=== PATIENT | female | born 1975 | race Caucasian/White ===

== ENCOUNTER → 2017-02-22 | Outpatient (REF) | payer OTHER | LOC: M LAB REF 16:24 | PROVIDERS: ATTEND Physician Assistant Medical | DX: J02.9 Acute pharyngitis, unspecified (principal) ==

== ENCOUNTER → 2017-05-30 | Outpatient (REF) | payer OTHER | LOC: M LAB REF 16:29 | PROVIDERS: ATTEND Nurse Practitioner Family | DX: K13.0 Diseases of lips (principal); D48.5 Neoplasm of uncertain behavior of skin ==

== ENCOUNTER → 2019-12-17 | Outpatient (REF) | payer OTHER ==
[~2019-12-17] MED LIST: ONDA4TAB6 PO; PRED20TA PO
[2019-12-22 00:07] LABS: HSV-1 DNA Negative (Negative); HSV-2 DNA Negative (Negative)
== END ==
LOC: M LAB REF 22:14
PROVIDERS: ATTEND Physician Assistant
DX: B00.1 Herpesviral vesicular dermatitis (principal)

== ENCOUNTER → 2020-01-05 | Outpatient (REF) | payer OTHER | LOC: M LAB REF 12:19 | PROVIDERS: ATTEND Registered Nurse | DX: R20.2 Paresthesia of skin (principal) ==

== ENCOUNTER → 2020-12-27 | Outpatient (CLI) | payer OTHER | LOC: M PLALAB 13:08 | PROVIDERS: ATTEND Allergy & Immunology Allergy | DX: T78.1XXD Other adverse food reactions, not elsewhere classified, subsequent encounter (principal) ==

== ENCOUNTER → 2022-06-29 | Outpatient (REF) | payer OTHER ==
[2022-06-29 20:22] LABS: APPEARANCE, URINE MANUAL CLEAR (CLEAR); COLOR, URINE MANUAL YELLOW (YELLOW)
[2022-06-29 20:23] LABS: BILIRUBIN, URINE MANUAL NEGATIVE (NEGATIVE); BLOOD URINE MANUAL NEGATIVE (NEGATIVE); GLUCOSE, URINE (UA) MANUAL NEGATIVE (NEGATIVE); KETONE, URINE MANUAL NEGATIVE (NEGATIVE); LEUKOCYTE ESTERASE, URINE MAN POSITIVE (NEGATIVE); NITRITE, URINE MANUAL NEGATIVE (NEGATIVE); PROTEIN, URINE MANUAL 1+ mg/dL (NEGATIVE); SPECIFIC GRAVITY,URINE MANUAL 1.015 (1.002-1.035); UROBILINOGEN, URINE MANUAL NORMAL (NORMAL)
[2022-06-29 20:27] LABS: BACTERIA, URINE NONE SEEN; HYALINE CAST, URINE NONE SEEN /lpf (0-1); RBC, URINE NONE SEEN /hpf (0-3); SQUAMOUS EPITHELIAL CELL URINE NONE SEEN /hpf (SMALL AMT); WBC, URINE NONE SEEN /hpf (0-3)
== END ==
LOC: M LAB REF 20:09
PROVIDERS: ATTEND Physician Assistant Medical
DX: N39.0 Urinary tract infection, site not specified (principal)

== ENCOUNTER → 2022-07-01 | Outpatient (REF) | payer OTHER ==
[2022-07-01 20:35] LABS: APPEARANCE, URINE MANUAL CLEAR (CLEAR); COLOR, URINE MANUAL ORANGE (YELLOW); PH,URINE MAN OBSCURED UNITS (5.0 - 7.0); PROTEIN, URINE MANUAL OBSCURED mg/dL (NEGATIVE)
[2022-07-01 20:36] LABS: BILIRUBIN, URINE MANUAL OBSCURED (NEGATIVE); BLOOD URINE MANUAL NEGATIVE (NEGATIVE); GLUCOSE, URINE (UA) MANUAL NEGATIVE (NEGATIVE); KETONE, URINE MANUAL OBSCURED mg/dL (NEGATIVE); LEUKOCYTE ESTERASE, URINE MAN OBSCURED (NEGATIVE); NITRITE, URINE MANUAL OBSCURED (NEGATIVE); UROBILINOGEN, URINE MANUAL OBSCURED mg/dl (NORMAL)
[2022-07-01 20:50] LABS: RBC, URINE NONE SEEN /hpf (0-3); SQUAMOUS EPITHELIAL CELL URINE SMALL AMOUNT /hpf (SMALL AMT)
[2022-07-01 20:51] LABS: AMORPHOUS SEDIMENT, URINE SMALL AMOUNT (NEGATIVE); BACTERIA, URINE SMALL AMOUNT; HYALINE CAST, URINE NONE SEEN /lpf (0-1)
== END ==
LOC: M LAB REF 18:01
PROVIDERS: ATTEND Physician Assistant Medical
DX: N39.0 Urinary tract infection, site not specified (principal)

== ENCOUNTER → 2022-07-04 | Outpatient (REF) | payer OTHER ==
[2022-07-04 13:31] LABS: BASO % 0.5 % (0.0-1.0); EOS % 0.8 % (0.0-3.0); HEMATOCRIT 41.6 % (36.0-47.0); HEMOGLOBIN 13.6 g/dl (12.0-15.5); LYMPH # 0.9 10^3/uL (1.5-5.0); LYMPH % 23.4 % (24.0-44.0); MEAN CORPUSCULAR HEMOGLOBIN 29.5 pg (27.0-33.0); MEAN CORPUSCULAR HGB CONC 32.7 g/dl (32.0-36.5); MEAN CORPUSCULAR VOLUME 90.2 fl (80.0-96.0); MONO # 0.4 10^3/uL (0.0-0.8); NEUTROPHILS # 2.6 10^3/uL (1.5-8.5); PLATELET COUNT, AUTOMATED 208 10^3/uL (150-450); RED BLOOD COUNT 4.61 10^6/uL (4.00-5.40); WHITE BLOOD COUNT 3.9 10^3/uL (4.0-10.0)
[2022-07-05 20:08] LABS: HSV IgM TYPES 1&2 <0.91 Ratio (0.00-0.90); HSV TYPE I IgG SPECIFIC 1.02 index (0.00-0.90); HSV TYPE II IgG SPECIFIC <0.91 index (0.00-0.90)
== END ==
LOC: M LAB REF 12:03
PROVIDERS: ATTEND Obstetrics & Gynecology
DX: A60.04 Herpesviral vulvovaginitis (principal)

== ENCOUNTER → 2023-01-07 | Outpatient (CLI) | payer OTHER ==
[2023-01-07 18:13] LABS: CORTISOL PM 5.7 UG/DL (3.1-16.7); ESTRADIOL 43.9 PG/ML; FOLLICLE STIMULATING HORMONE 67.7 mIU/ML; LUTEINIZING HORMONE 50.7 mIU/ML; PROGESTERONE 0.24 NG/ML
== END ==
LOC: M WUC 14:43
PROVIDERS: ATTEND Obstetrics & Gynecology
DX: N95.1 Menopausal and female climacteric states (principal)

== ENCOUNTER → 2023-01-23 | Outpatient (CLI) | payer OTHER | LOC: M WHC 07:45 | PROVIDERS: ATTEND Obstetrics & Gynecology | DX: N95.1 Menopausal and female climacteric states (principal) ==

== ENCOUNTER → 2023-03-12 | Outpatient (CLI) | payer OTHER ==
[2023-03-12 19:39] LABS: FOLLICLE STIMULATING HORMONE 44.1 mIU/ML; LUTEINIZING HORMONE 28.1 mIU/ML; PROGESTERONE 0.27 NG/ML
[2023-03-12 19:40] LABS: ESTRADIOL 70.3 PG/ML
== END ==
LOC: M WUC 15:16
PROVIDERS: ATTEND Obstetrics & Gynecology
DX: N95.1 Menopausal and female climacteric states (principal); E34.9 Endocrine disorder, unspecified; F52.0 Hypoactive sexual desire disorder

== ENCOUNTER → 2023-05-22 | Outpatient (CLI) | payer OTHER ==
[2023-05-22 15:42] LABS: PROGESTERONE < 0.21 NG/ML
[2023-05-22 15:43] LABS: FOLLICLE STIMULATING HORMONE 19.4 mIU/ML
[2023-05-22 15:44] LABS: ESTRADIOL 128.6 PG/ML
[2023-05-24 15:08] LABS: TESTOSTERONE FREE (DIRECT) 2.5 pg/mL (0.0-4.2)
== END ==
LOC: M WUC 11:34
PROVIDERS: ATTEND Obstetrics & Gynecology
DX: N95.1 Menopausal and female climacteric states (principal); E34.9 Endocrine disorder, unspecified; F52.0 Hypoactive sexual desire disorder

== ENCOUNTER → 2023-09-19 | Outpatient (CLI) | payer OTHER ==
[2023-09-19 17:35] LABS: FOLLICLE STIMULATING HORMONE 44.2 mIU/ML; LUTEINIZING HORMONE 35.3 mIU/ML
[2023-09-19 17:36] LABS: ESTRADIOL 153.5 PG/ML; PROGESTERONE 6.31 NG/ML
[2023-09-21 10:10] LABS: TESTOSTERONE FREE (DIRECT) 3.3 pg/mL (0.0-4.2)
== END ==
LOC: M WUC 11:46
PROVIDERS: ATTEND Obstetrics & Gynecology
DX: N95.1 Menopausal and female climacteric states (principal); E34.9 Endocrine disorder, unspecified; F52.0 Hypoactive sexual desire disorder

== ENCOUNTER → 2024-03-02 | Outpatient (REF) | payer OTHER | LOC: M SFHCPLAZ 12:19 | PROVIDERS: ATTEND Internal Medicine Infectious Disease | DX: L28.2 Other prurigo (principal) ==

== ENCOUNTER → 2024-03-02 | Outpatient (CLI) | payer OTHER ==
[2024-03-02 17:20] LABS: C REACTIVE PROTEIN QUANTITATIV < 0.40 MG/DL (<1.0)
[2024-03-02 17:22] LABS: IMMUNOGLOBULIN A 354.4 MG/DL (40-350); IMMUNOGLOBULIN G 875 MG/DL (650-1600)
[2024-03-02 17:23] LABS: BASO # 0.1 10^3/uL (0.0-0.2); BASO % 0.9 % (0.0-1.0); EOS # 0.2 10^3/uL (0.0-0.5); EOS % 3.5 % (0.0-3.0); HEMATOCRIT 41.8 % (36.0-47.0); LYMPH # 1.9 10^3/uL (1.5-5.0); LYMPH % 29.1 % (24.0-44.0); MEAN CORPUSCULAR HEMOGLOBIN 31.3 pg (27.0-33.0); MEAN CORPUSCULAR HGB CONC 33.5 g/dl (32.0-36.5); MEAN CORPUSCULAR VOLUME 93.3 fl (80.0-96.0); MONO # 0.4 10^3/uL (0.0-0.8); MONO % 5.8 % (2.0-8.0); NEUTROPHILS % 60.5 % (36.0-66.0); PLATELET COUNT, AUTOMATED 301 10^3/uL (150-450); RED BLOOD COUNT 4.48 10^6/uL (4.00-5.40); WHITE BLOOD COUNT 6.5 10^3/uL (4.0-10.0)
[2024-03-02 17:48] LABS: HIV 1&2 SCREEN NEGATIVE (NEGATIVE)
[2024-03-02 17:53] LABS: ERYTHROCYTE SEDIMENTATION RATE 12 mm/hr (0-30)
[2024-03-02 19:21] LABS: ALBUMIN 3.4 G/DL (3.2-5.2); ALKALINE PHOSPHATASE 68 U/L (46-116); ALT/SGPT 27 U/L (7.0-40); AST/SGOT 22 U/L (<34); BILIRUBIN,TOTAL 0.2 MG/DL (0.3-1.2); BLOOD UREA NITROGEN 19 MG/DL (9-23); CALCIUM LEVEL 9.1 MG/DL (8.5-10.1); CARBON DIOXIDE LEVEL 26 MMOL/L (20-31); CHLORIDE LEVEL 107 MMOL/L (98-107); CREATININE FOR GFR 0.86 MG/DL (0.55-1.30); GLOMERULAR FILTRATION RATE > 60.0 (>51); GLUCOSE, FASTING 98 MG/DL (60-100); IMMUNOGLOBULIN E 31.5 IU/ML (0-378); POTASSIUM SERUM 4.2 MMOL/L (3.5-5.1); SODIUM LEVEL 140 MMOL/L (136-145); TOTAL PROTEIN 6.4 G/DL (5.7-8.2)
[2024-03-05 00:07] LABS: HSV TYPE II IgG SPECIFIC <0.91 index (0.00-0.90)
== END ==
LOC: M WUC 10:42
PROVIDERS: ATTEND Internal Medicine Infectious Disease
DX: L28.2 Other prurigo (principal); A60.00 Herpesviral infection of urogenital system, unspecified

== ENCOUNTER 2024-07-01 07:29 | Day surgery (SDC) | payer OTHER ==
[~2024-07-01] VITALS: Ht 157.5 cm; Wt 81.9 kg
[~2024-07-01 07:29] MED LIST changes: +ONDA-282 PO; -ONDA4TAB6 PO; +PROG1CAP9 PO; +VENL75CA47 PO
[2024-07-01] MEDS: NS 1,000 ML IV ONE (07:46)
[2024-07-01] MEDS ORDERED: PRED10PA PO (08:13)
[2024-07-01] MEDS ORDERED: PROG1CAP9 PO (08:14)
[2024-07-01] MEDS ORDERED: propofoL 200 MG/20 ML VIAL As Ordered ONE (08:48)
[2024-07-01 09:02] VITALS: TEMP 97.7
[2024-07-01 09:20] VITALS: BP 104/70; O2SAT 99
== END 2024-07-01 09:27 | disposition home or self-care (01) ==
LOC: M OPP 07:29
PROVIDERS: ATTEND Internal Medicine Gastroenterology
DX: Z12.11 Encounter for screening for malignant neoplasm of colon (principal); K64.0 First degree hemorrhoids; Z79.899 Other long term (current) drug therapy

== ENCOUNTER → 2025-01-08 | Outpatient (CLI) | payer OTHER ==
[~2025-01-08] MED LIST changes: +PRED10PA PO
== END ==
LOC: M WUC 12:35
PROVIDERS: ATTEND Nurse Practitioner Family
DX: R20.0 Anesthesia of skin (principal); Z96.641 Presence of right artificial hip joint